=== PATIENT | male | born 1980 | race Hispanic/Latino ===

== ENCOUNTER 2024-06-21 18:58 | Emergency (ER) | payer OTHER ==
--- OUTSIDE RECORDS SUMMARY | 2024-06-21 19:00 | XMS REPORT | Continuity of Care Document ---
Author Name Unknown Address [address] [place] [address] 1 [address] [place] [id number] [facility]connect Address [address] [place] [address] 1 [address] [place] [address] Care Team Providers Care Mortgage Loan Reviewer Name Role Phone Fanta Attending Clinician Madison Jewell Admitting Clinician Madison ascencio Payers Payer Name Policy Type Policy Number Effective Date Expirati on Date Source [employer] - CHOICE (POS II) [id number] 2021 00:00:00 Encounters Start Date/Time End Date/Time Encounter Type Admission Type Attending Clinicians Care Facility Care Department Encounter ID Source 2023-02-13 00:00:00 2023-02-13 00:00:00 Outpatient FOG_AlondraeBradenR Luis AOSM AOSM [id number] [facility] 2023-01-12 00:00:00 2023-01-12 00:00:00 Outpatient MAURICIO_Solomon_R Luis AOSM AOSM [id number] [facility] 2023-01-12 00:00:00 2023-01-12 00:00:00 Outpatient MAURICIO_AlondraeBradenR Luis AOSM AOSM [id number] [facility] 2023-01-09 00:00:00 2023-01-09 00:00:00 Outpatient MAURICIO_AlondraeBradenR Luis AOSM AOSM [id number] [facility] 2023-01-09 00:00:00 2023-01-09 00:00:00 Outpatient MAURICIO_AlondraeBradenR Luis AOSM AOSM [id number] [facility] 2022-12-25 00:00:00 2022-12-25 00:00:00 Outpatient Nakul Smith AOSM AOSM [id number] [facility] 2022-12-23 00:00:00 2022-12-23 00:00:00 Outpatient Nakul Smith AOSM AOSM [id number] [facility] 2022-12-23 00:00:00 2022-12-23 00:00:00 Outpatient Nakul Smith AOSM AOSM [id number] [facility] 2022-12-22 00:00:00 2022-12-22 00:00:00 Outpatient Nakul Smith AOSM AOSM [id number] [facility]
[2024-06-21] MEDS ORDERED: MORPHINE 4 MG/ML SYR ONE (19:25)
[2024-06-21] MEDS ORDERED: ASPIRIN 81 MG CHEWABLE TABLET ONE (19:25)
[2024-06-21] MEDS ORDERED: FENTANYL CITR 100 MCG/2 ML ONE (19:46)
[2024-06-21] MEDS ORDERED: FAMOTIDINE 20 MG/2 ML VIAL IV ONE (19:46)
[2024-06-21] MEDS ORDERED: NITROGLYCERIN 0.4 MG/TAB SL ONE (19:46)
[2024-06-21] MEDS ORDERED: LIDOCAINE 4% PATCH ONE (19:46)
[2024-06-21 20:12] LABS: Absolute Basophils 0.1 K/uL (0-0.5); Absolute Eosinophils 0.2 K/uL (0-0.5); Absolute Lymphocytes (CBC) 2.1 K/uL (0.7-4.9); Absolute Monocytes 0.5 K/uL (0.1-1.3); Basophils % 1.4 % (0-1.3); Eosinophils % 2.4 % (0-4.4); Hematocrit 51.1 % (39.6-49.0); Hemoglobin 17.3 g/dL (13.6-17.9); Lymphocytes % 29.8 % (15.3-44.8); MCH 30.6 pg (27.0-35.0); MCHC 33.8 g/dL (32.0-36.0); MCV 90.4 fL (80-100); MPV 8.1 fL (7.6-11.3); Monocytes % 7.8 % (3.3-12.3); Neutrophils % 58.6 % (41.7-73.7); Nucleated Red Blood Cells % 0.1 % (0-0); Platelets 298 thou/uL (152-406); RBC Red Blood Cell Count 5.65 M/uL (4.33-5.43); Red Cell Distribution Width 14.1 % (12.1-15.2)
[2024-06-21 20:13] LABS: PT Prothrombin Time 10.4 SECONDS (9.4-12.5); Protime INR 0.93
--- NOTE | 2024-06-21 20:15 | RAD REPORT ---
EXAMINATION: ONE VIEW CHEST XR CLINICAL INDICATION: CHEST PAIN TECHNIQUE: Frontal chest projection is submitted. Examination is limited by patient positioning and t echnique. COMPARISON: No prior exam. FINDINGS: The lungs are well inflated and clear. The heart is upper limit of normal in size. No displaced fract ures identified. IMPRESSION: No acute intrathoracic abnormalities.
[2024-06-21 20:30] LABS: Anion Gap 8.6 mEq/L (5.0-15.0); Potassium 3.6 mEq/L (3.5-5.1); Troponin High Sensitivity 6.2 pg/mL (<58.9)
[2024-06-21] MEDS ORDERED: DIPHENHYDRAMINE 50 MG/ML VIAL ONE (21:04)
--- NOTE | 2024-06-21 21:07 | RAD REPORT ---
EXAM: CTA of the chest, abdomen and pelvis HISTORY: Chest pain and back pain chest pain, htn COMPARISON: None TECHNIQUE: Multiple contiguous axial images were obtained a CTA of the chest and abdomen with contras t per aortic dissection protocol. This involves 3D reconstructions, MIPs, volume rendered images and/or shaded surface rendering. One or more of the following dose reduction techniques were used: Au tomated exposure control, adjustment of the mA and/or kV according to patient size, and/or iterative reconstruction. Unless otherwise specified, incidental findings do not require dedicated im aging follow-up. Sagittal and coronal 3-D MIP reformats were performed. FINDINGS: PULMONARY ARTERIES: Normal in caliber without filling defects to suggest pulmonary emboli. ASCENDING THORACIC AORTA: Normal caliber without evidence of dissection or aneurysmal dilatation. DESCENDING THORACIC AORTA: Normal caliber without evidence of dissection or aneurysmal dilatation. ABDOMINAL AORTA: Normal caliber without evidence of dissection or aneurysmal dilatation. CELIAC TRUNK: Patent. SMA: Patent SHELIA: Patent RENAL ARTERIES: Bilateral renal arteries without significant atherosclerotic disease. Accessory left renal artery noted. MEDIASTINUM: No hilar or mediastinal lymphadenopathy. LUNGS: No focal infiltrates or masses. PLEURAL SPACE: No pleural effusion or pneumothorax. LIVER: Prominent fatty liver.. SPLEEN: Unremarkable. PANCREAS: Unremarkable. KIDNEYS: 10 mm low-density lesion with mild enhancement inferior medial right kidney.. ADRENALS: Unremarkable. BOWEL: Unremarkable. RETROPERITONEUM: No lymphadenopathy. BONES: Mild lower lumbar disc bulges. ADDITIONAL FINDINGS: Multistone cholelithiasis. IMPRESSION: No evidence of thoracic or abdominal aortic aneurysm or dissection. Extensive cholelithiasis with diffuse fatty liver. 10 mm low-density lesion with mild rim enhancement inferior medial right kidney. This could be a smal l mass. Recommend MRI renal protocol with contrast for nonemergent follow-up.
--- NOTE | 2024-06-21 22:30 | RAD REPORT ---
EXAM: Right upper quadrant ultrasound. CLINICAL HISTORY: EPIGASTRIC PAIN COMPARISON: None. FINDINGS: Gallbladder: Multiple shadowing gallstones. Bile ducts: No intrahepatic or extrahepatic biliary dilatation. Common bile duct measures 4 mm. Limited imaging of the liver shows no concerning finding. IMPRESSION: Extensive cholelithiasis.
--- NOTE | 2024-06-21 22:46 | EDPHYS ---
Physician Documentation [facility] Name: Lucio Minor Age: 44 yrs Sex: Male : 1980 Arrival Date: 06/21/2024 Time: 18:58 Bed 25 Private MD: ED Physician Skinny Leblanc HPI: 06/21 19:42 This 44 yrs old Male presents to ER via Wheelchair with complaints of Chest ec2 Pain, Breathing Difficulty. 19:42 Patient arrives today for evaluation of chest tightness and shortness of breath. ec2 Patient reports that he has been experiencing some chest tightness throughout the day. States that also occurred last night while he was sleeping and woke him from sleep. Patient reports he had similar types of pain and was diagnosed with GERD. Reports no fevers or chills. Denies any chest trauma. Reports history of hypertension and takes losartan.. Historical: - Allergies: 19:17 No Known Allergies; ap3 - PMHx: 19:17 Hypertensive disorder; ap3 - Immunization history:: Adult Immunizations up to date. - Infectious Disease History:: Denies. - Social history:: Smoking status: Reported history of juuling and/or vaping. ROS: 19:42 Constitutional: as per hpi ec2 Exam: 19:42 Constitutional: GEN: NAD Head: atraumatic Eyes: EOMI Ears: External ears are ec2 normal. CV: regular rate LUNGS: no respiratory distress, no wheezes or rales or rhonchi ABD: non-distended SKIN: no evidence of rashes MSK: no evidence of trauma, reproducible chest wall TTP without deformities or crepitus appreciated. Vital Signs: 19:16 BP 205 / 103; Pulse 70; Resp 19; Pulse Ox 99% on R/A; Weight 95.25 kg; Height 5 ft. 10 ap3 in. ; Pain 10/10; 19:42 BP 172 / 97; ec2 20:00 BP 185 / 98; Pulse 98; Resp 19 S; Pulse Ox 99% on R/A; ha1 21:12 BP 153 / 94; Pulse 76; Resp 20; Pulse Ox 100% ; kmf 21:54 BP 145 / 75; Pulse 72; Resp 18 S; Pulse Ox 99% on R/A; ha1 23:00 BP 123 / 75; Pulse 67; Resp 18 S; Temp 97.6(T); Pulse Ox 98% on R/A; ha1 19:16 Body Mass Index 30.13 (95.25 kg, 177.8 cm) ap3 19:16 Pain Scale: Adult ap3 MDM: 19:16 Medical Screening Exam initiated ec2 19:17 ED course: EKG independently reviewed and interpreted by me, shows normal sinus rhythm, ec2 rate of 66, no acute ST segment elevations, intervals are nonactionable.. 19:42 Data reviewed: vital signs, nurses notes. ED course: Patient arrives today for ec2 evaluation of chest pain. Examination is revealing for uncomfortable individuals otherwise hemodynamically hypertensive. Differential diagnoses considered include processes such as ACS, PE, dissection. Additionally costochondritis, reflux. I did obtain a repeat EKG, independently reviewed and interpreted by me, shows normal sinus rhythm, rate of 76, no acute ST segment elevations, intervals are nonactionable, appears similar to initial. 22:44 Counseling: I had a detailed discussion with the patient and/or guardian regarding the pm1 historical points, exam findings, and any diagnostic results supporting the discharge/admit diagnosis, lab results, radiology results, the need for outpatient follow up, a general surgeon, to return to the emergency department if symptoms worsen or persist or if there are any questions or concerns that arise at home. 22:44 Management of patient was discussed with the following: Dr Leblanc. Reviewed labs and pm1 imaging. Patient can be discharged home with follow up with general surgery. 06/21 19:17 Order name: Basic Metabolic Panel; Complete Time: 22:41 ec2 06/21 19:17 Order name: CBC with Diff; Complete Time: 20:16 ec2 06/21 19:17 Order name: NT PRO-BNP; Complete Time: 22:41 ec2 06/21 19:17 Order name: PT-INR; Complete Time: 20:16 ec2 06/21 19:17 Order name: Troponin HS; Complete Time: 22:41 ec2 06/21 22:24 Order name: Lipase; Complete Time: 22:41 EDMS 06/21 19:17 Order name: XRAY Chest (1 view); Complete Time: 20:58 ec2 06/21 19:35 Order name: CT Aorta for Dissection; Complete Time: 21:30 ec2 12/11 21:50 Order name: US Abdomen Limited; Complete Time: 22:33 pm1 06/21 19:17 Order name: EKG; Complete Time: 19:17 ec2 06/21 19:17 Order name: Cardiac monitoring; Complete Time: 19:57 ec2 06/21 19:17 Order name: EKG - Nurse/Tech; Complete Time: 19:19 ec2 06/21 19:17 Order name: IV Saline Lock; Complete Time: 19:32 ec2 06/21 19:17 Order name: Labs collected and sent; Complete Time: 19:57 ec2 06/21 19:17 Order name: O2 Per Protocol; Complete Time: 19:57 ec2 06/21 19:17 Order name: O2 Sat Monitoring; Complete Time: 19:58 ec2 Administered Medications: 19:22 Drug: morphine IVP or IV 4 mg IVP once over 4 mins Route: IVP; Infused Over: 4 mins; ha1 Site: left antecubital; 20:05 Follow up: Response: No adverse reaction; Pain is unchanged, physician notified ha1 19:23 Drug: Aspirin PO Chewable Tablet 324 mg PO once; 81 mg tablets x 4 Route: PO; ha1 20:00 Follow up: Response: No adverse reaction ha1 19:48 Drug: Nitroglycerin Sublingual 0.4 mg Sublingual once; every five minute if needed x3 ha1 Route: Sublingual; 20:20 Follow up: Response: No adverse reaction ha1 19:48 Drug: Famotidine IVP 20 mg IVP once; dilute with 10 mL 0.9% NaCl; give over 2 minutes ha1 Route: IVP; Site: left antecubital; 20:20 Follow up: Response: No adverse reaction; Marked relief of symptoms ha1 19:50 Drug: fentaNYL (PF) IVP 100 mcg IVP once Route: IVP; Site: left antecubital; ha1 20:20 Follow up: Response: No adverse reaction; Marked relief of symptoms; Pain is decreased; ha1 RASS: Alert and Calm (0) 19:58 Drug: Lidoderm Topical Patch 5 % (700 mg/patch) 1 patches Topical once; leave on for 12 ha1 hours; cover most painful area; may cut into smaller pieces Route: Topical; Site: affected area; 20:20 Follow up: Response: No adverse reaction ha1 21:06 Drug: diphenhydrAMINE IVP 25 mg IVP once Route: IVP; Site: left antecubital; ha1 21:20 Follow up: Response: No adverse reaction; Marked relief of symptoms ha1 Disposition: 06/22 22:13 Co-signature as Attending Physician, Skinny Leblanc MD I agree with the assessment sp4 and plan of care. I reviewed the patient's care provided by the Advanced Practice Provider and agree with the diagnosis and treatment plan. Disposition Summary: 06/21/24 22:46 Discharge Ordered Notes: Location: Home pm1 Problem: new pm1 Symptoms: have improved pm1 Condition: Stable pm1 Diagnosis - Chest pain, unspecified pm1 - Other cholelithiasis without obstruction pm1 Followup: pm1 - With: Emergency Department - When: As needed - Reason: Worsening of condition Followup: pm1 - With: Private Physician - When: 2 - 3 days - Reason: Recheck today's complaints, Continuance of care, Re-evaluation by your physician Followup: pm1 - With: Shane Minor MD - When: 2 - 3 days - Reason: Recheck today's complaints, Continuance of care, Re-evaluation by your physician Discharge Instructions: - Discharge Summary Sheet pm1 - Nonspecific Chest Pain, Adult pm1 - Cholelithiasis pm1 Forms: - Medication Reconciliation Form pm1 - Antibiotic Education pm1 - Prescription Opioid Use pm1 - Patient Portal Instructions pm1 - Leadership Thank You Letter pm1 Prescriptions: - ondansetron 4 mg Oral Tablet,disintegrating - take 1 tablet ORAL route every 8 hours As needed; 12 tablet; Refills: 0, pm1 Product Selection Permitted - dicyclomine 20 mg Oral tablet - take 1 tablet ORAL route 4 times per day As needed; 20 tablet; Refills: 0, pm1 Product Selection Permitted Signatures: Dispatcher [employer] EDMS Mahin Dean NP LAN ENGINEER pm1 Cris Rico RN RN ap3 Carmencita Koehler RN RN ha1 Skinny Leblanc MD MD sp4 Bernabe England MD MD ec2 Corrections: (The following items were deleted from the chart) 06/21 22:24 21:51 LIPASE+C.LAB.BRZ ordered. EDNC EDMS
--- NOTE | 2024-06-21 22:46 | ER ---
Nurse's Notes [facility] Name: Lucio Minor Age: 44 yrs Sex: Male : 1980 Arrival Date: 06/21/2024 Time: 18:58 Bed 25 Private MD: Diagnosis: Chest pain, unspecified;Other cholelithiasis without obstruction Presentation: 06/21 19:16 Chief complaint: Patient states: he started having chest pain at approx 0200 this ap3 morning. patient currently rates his chest pain a 10/10 on the pain scale. patient states the pain does not radiate at this time. Coronavirus screen: At this time, the client does not indicate any symptoms associated with coronavirus-19. Ebola Screen: No symptoms or risks identified at this time. Initial Sepsis Screen: Does the patient meet any 2 criteria? No. Patient's initial sepsis screen is negative. Does the patient have a suspected source of infection? No. Patient's initial sepsis screen is negative. Risk Assessment: Do you want to hurt yourself or someone else? Patient reports no desire to harm self or others. Onset of symptoms was June 21, 2024. 19:16 Method Of Arrival: Wheelchair ap3 19:16 Acuity: LINDSEY 2 ap3 Triage Assessment: 19:18 General: Appears uncomfortable, Behavior is restless. Pain: Complains of pain in chest ap3 Pain currently is 10 out of 10 on a pain scale. Neuro: Level of Consciousness is awake, alert, obeys commands, Oriented to person, place, time, situation, Appropriate for age. Cardiovascular: Reports chest pain. Respiratory: Airway is patent Respiratory effort is even, unlabored, Respiratory pattern is regular, symmetrical. Historical: - Allergies: 19:17 No Known Allergies; ap3 - PMHx: 19:17 Hypertensive disorder; ap3 - Immunization history:: Adult Immunizations up to date. - Infectious Disease History:: Denies. - Social history:: Smoking status: Reported history of juuling and/or vaping. Screenin:16 [facility] ED Fall Risk Assessment (Adult) History of falling in the last 3 months, ha1 including since admission No falls in past 3 months (0 pts) Confusion or Disorientation No (0 pts) Intoxicated or Sedated No (0 pts) Impaired Gait No (0 pts) Mobility Assist Device Used No (0 pt) Altered Elimination Score/Fall Risk Level 0 - 2 = Low Risk Oriented to surroundings, Maintained a safe environment, Educated pt \T\ family on fall prevention, incl call for assistance when getting out of bed, Hourly rounding (assess needs \T\ fall precautionary measures) done. 19:19 Abuse screen: Denies threats or abuse. Nutritional screening: No deficits noted. ap3 Tuberculosis screening: No symptoms or risk factors identified. Assessment: 19:16 General: Appears uncomfortable, Behavior is agitated, anxious, restless. Pain: ha1 Complains of pain in chest Pain radiates to back Pain currently is 10 out of 10 on a pain scale. Quality of pain is described as throbbing, Pain began suddenly, 1 hour ago. Neuro: Level of Consciousness is awake, alert, obeys commands, Oriented to person, place, time, situation. Cardiovascular: Capillary refill < 3 seconds Patient's skin is warm and dry. Cardiovascular: Reports chest pain, Rhythm is sinus rhythm. Respiratory: Airway is patent Respiratory effort is even, unlabored, Respiratory pattern is regular, symmetrical. GI: Abdomen is round non-distended, Reports nausea. 20:00 Reassessment: Patient and/or family updated on plan of care and expected duration. Pain ha1 level reassessed. Patient is alert, oriented x 3, equal unlabored respirations, skin warm/dry/pink. pain 7/10 Patient states symptoms have improved. 21:00 Reassessment: Patient and/or family updated on plan of care and expected duration. Pain ha1 level reassessed. Patient is alert, oriented x 3, equal unlabored respirations, skin warm/dry/pink. 21:54 Reassessment: Patient and/or family updated on plan of care and expected duration. Pain ha1 level reassessed. Patient is alert, oriented x 3, equal unlabored respirations, skin warm/dry/pink. Patient states feeling better. Patient states symptoms have improved. 23:00 Reassessment: Patient and/or family updated on plan of care and expected duration. Pain ha1 level reassessed. Patient is alert, oriented x 3, equal unlabored respirations, skin warm/dry/pink. Patient denies pain at this time. Patient states feeling better. Patient states symptoms have improved. Vital Signs: 19:16 BP 205 / 103; Pulse 70; Resp 19; Pulse Ox 99% on R/A; Weight 95.25 kg; Height 5 ft. 10 ap3 in. ; Pain 10/10; 19:42 BP 172 / 97; ec2 20:00 BP 185 / 98; Pulse 98; Resp 19 S; Pulse Ox 99% on R/A; ha1 21:12 BP 153 / 94; Pulse 76; Resp 20; Pulse Ox 100% ; kmf 21:54 BP 145 / 75; Pulse 72; Resp 18 S; Pulse Ox 99% on R/A; ha1 23:00 BP 123 / 75; Pulse 67; Resp 18 S; Temp 97.6(T); Pulse Ox 98% on R/A; ha1 19:16 Body Mass Index 30.13 (95.25 kg, 177.8 cm) ap3 19:16 Pain Scale: Adult ap3 ED Course: 19:01 Patient arrived in ED. ra3 19:08 EKG done, by ED staff, reviewed by Bernabe England MD. ap3 19:15 No provider procedures requiring assistance completed. Inserted saline lock: 20 gauge ha1 in right hand, using aseptic technique. Blood collected. Flushed with 10 mL NS. 19:15 Arm band placed on right wrist. ha1 19:15 Client placed on continuous cardiac and pulse oximetry monitoring. NIBP monitoring ha1 applied. senior solutions architect on. 19:15 Patient has correct armband on for positive identification. Placed in gown. Bed in low ha1 position. Call light in reach. Side rails up X 1. Adult w/ patient. 19:16 Bernabe England MD is Attending Physician. ec2 19:17 Triage completed. ap3 19:19 Patient maintains SpO2 saturation greater than 95% on room air. ap3 19:28 Inserted saline lock: 18 gauge in left antecubital area, using aseptic technique. ha1 Flushed with 10 mL NS. 19:42 Carmencita Koehler, LIZET is Primary Nurse. ha1 20:01 XRAY Chest (1 view) In Process Unspecified. EDMS 20:56 CT Aorta for Dissection In Process Unspecified. EDMS 20:57 Mahin Dean NP is PHCP. pm1 22:26 US Abdomen Limited In Process Unspecified. EDMS 22:42 Attending Physician role handed off by Bernabe England MD sp4 22:42 Skinny Leblanc MD is Attending Physician. sp4 22:45 Shane Minor MD is Referral Physician. pm1 23:25 IV discontinued, intact, bleeding controlled, No redness/swelling at site. Pressure ha1 dressing applied. 23:25 Provided Education on: follow ups and medication administration . ha1 Administered Medications: 19:22 Drug: morphine IVP or IV 4 mg IVP once over 4 mins Route: IVP; Infused Over: 4 mins; ha1 Site: left antecubital; 20:05 Follow up: Response: No adverse reaction; Pain is unchanged, physician notified ha1 19:23 Drug: Aspirin PO Chewable Tablet 324 mg PO once; 81 mg tablets x 4 Route: PO; ha1 20:00 Follow up: Response: No adverse reaction ha1 19:48 Drug: Nitroglycerin Sublingual 0.4 mg Sublingual once; every five minute if needed x3 ha1 Route: Sublingual; 20:20 Follow up: Response: No adverse reaction ha1 19:48 Drug: Famotidine IVP 20 mg IVP once; dilute with 10 mL 0.9% NaCl; give over 2 minutes ha1 Route: IVP; Site: left antecubital; 20:20 Follow up: Response: No adverse reaction; Marked relief of symptoms ha1 19:50 Drug: fentaNYL (PF) IVP 100 mcg IVP once Route: IVP; Site: left antecubital; ha1 20:20 Follow up: Response: No adverse reaction; Marked relief of symptoms; Pain is decreased; ha1 RASS: Alert and Calm (0) 19:58 Drug: Lidoderm Topical Patch 5 % (700 mg/patch) 1 patches Topical once; leave on for 12 ha1 hours; cover most painful area; may cut into smaller pieces Route: Topical; Site: affected area; 20:20 Follow up: Response: No adverse reaction ha1 21:06 Drug: diphenhydrAMINE IVP 25 mg IVP once Route: IVP; Site: left antecubital; ha1 21:20 Follow up: Response: No adverse reaction; Marked relief of symptoms ha1 Medication: 23:25 VIS not applicable for this client. ha1 Outcome: 22:46 Discharge ordered by . pm1 23:25 Patient left the ED. ha1 23:25 Condition: stable ha1 23:25 Discharged to home ambulatory, with family, ha1 23:25 Discharge instructions given to patient, family, Instructed on discharge instructions, follow up and referral plans. medication usage, Demonstrated understanding of instructions, follow-up care, medications, Prescriptions given X 2, Signatures: Dispatcher [employer] EDMahin Adames, STORY EDITOR STORY EDITOR pm1 Cris Rico RN RN ap3 Carmencita Koehler RN RN ha1 Skinny Leblanc MD MD sp4 Bernabe England MD MD ec2 Skyla Armando formerly [facility] Yisel Blanchard ra3 Corrections: (The following items were deleted from the chart) 23:47 23:44 Patient left the ED. ha1 ha1
[2024-06-21 23:54] VITALS: BP 145/75; O2SAT 99
--- NOTE | 2024-06-23 15:49 | EKG ---
Test Date: 2024-06-21 Test Time: 19:36:36 Office Machine Installer: ALP MEASUREMENT RESULTS: Intervals: Rate: 76 RI: 140 QRSD: 94 QT: 420 QTc: 472 [place]: P: 61 RI: 140 QRS: 72 T: 25 INTERPRETIVE STATEMENTS: Normal sinus rhythm Normal ECG Compared to ECG 06/21/2024 19:08:17 No significant changes Electronically Signed On 06-23-24 15:47:21 TELETYPESETTER OPERATOR by Kojo Shaver
--- NOTE | 2024-06-23 15:49 | EKG ---
Test Date: 2024-06-21 Test Time: 19:08:17 Napper Fixer: ALP MEASUREMENT RESULTS: Intervals: Rate: 66 AL: 140 QRSD: 94 QT: 390 QTc: 408 [place]: P: 53 AL: 140 QRS: 76 T: 45 INTERPRETIVE STATEMENTS: Normal sinus rhythm Normal ECG Compared to ECG 02/04/2015 02:14:01 No significant changes Electronically Signed On 06-23-24 15:47:23 MOVIE CRITIC by Kojo Shaver
== END 2024-06-21 23:44 | disposition home or self-care (01) ==
LOC: ER 18:58
DX: K80.80 Other cholelithiasis without obstruction (principal); I10 Essential (primary) hypertension
CPT/HCPCS: 93005 ×2; 85025; 80048; 36415; 85610; 84484; 83690; 83880; 71275; 74175; 71045; 76705; 96375; 96374; 99285; Q9967; J2003; J1200; J3010

== ENCOUNTER 2024-06-26 09:07 | Day surgery (SDC) | payer OTHER ==
[2024-06-26 09:48] LABS: Absolute Eosinophils 0.2 K/uL (0-0.5); Absolute Lymphocytes (CBC) 1.4 K/uL (0.7-4.9); Absolute Monocytes 0.5 K/uL (0.1-1.3); Absolute Neutrophil 3.3 K/uL (1.8-8.0); Basophils % 0.9 % (0-1.3); Hematocrit 47.5 % (39.6-49.0); Hemoglobin 15.7 g/dL (13.6-17.9); Lymphocytes % 25.6 % (15.3-44.8); MCH 30.6 pg (27.0-35.0); MCHC 33.1 g/dL (32.0-36.0); MCV 92.3 fL (80-100); MPV 7.8 fL (7.6-11.3); Monocytes % 9.2 % (3.3-12.3); Neutrophils % 61.3 % (41.7-73.7); Platelets 288 thou/uL (152-406); RBC Red Blood Cell Count 5.14 M/uL (4.33-5.43); Red Cell Distribution Width 13.7 % (12.1-15.2)
[2024-06-26 10:03] LABS: Albumin 3.2 g/dL (3.4-5.0); Albumin/Globulin Ratio 0.8 (1.1-1.8); Anion Gap 6.5 mEq/L (5.0-15.0); Bilirubin Direct 0.2 mg/dL (0-0.2); Bilirubin Indirect, Calculated 0.4 mg/dL (0.2-0.8); Bilirubin Total 0.6 mg/dL (0.2-1.0); Globulin 3.8 g/dL (2.3-3.5); Potassium 4.5 mEq/L (3.5-5.1)
[2024-06-26] MEDS: Ringers Lactate 1,000 ML IV ONE (10:20)
--- NOTE | 2024-06-26 10:25 | RAD REPORT ---
EXAM: Chest Pa And Lat (2 Views) HISTORY: PREOP COMPARISON: 06/21/2024 FINDINGS: LUNGS/PLEURA: The lungs are clear. No pleural effusions or pneumothorax. No pulmonary edema. MEDIASTINUM: The mediastinal silhouette is within normal limits. CARDIAC: The cardiac silhouette is within normal limits. UPPER ABDOMEN: No significant abnormality. BONES: No acute fracture. LINES/TUBES/OTHER: N/A IMPRESSION: No evidence of acute cardiopulmonary disease.
[2024-06-26] MEDS ORDERED: ROCURONIUM 50 MG/5 ML VIAL IV ONE (10:49)
[2024-06-26] MEDS ORDERED: FENTANYL CITR 100 MCG/2 ML ONE (10:49)
[2024-06-26] MEDS ORDERED: propofoL 200 MG/20 ML VIAL IV ONE (10:49)
[2024-06-26] MEDS ORDERED: MIDAZOLAM HCL 2 MG/2 ML INJ ONE (10:49)
[2024-06-26] MEDS ORDERED: LIDOCAINE 2% MPF 5 ML VIAL ONE (10:49)
[2024-06-26] MEDS ORDERED: ONDANSETRON 4 MG/2 ML VIAL ONE (10:49)
[2024-06-26] MEDS: CEFOXITIN SODIUM 1 GM/VIAL ONE (11:34)
[2024-06-26] MEDS ORDERED: dexAMETHasone 10 MG/ML VIAL ONE (11:35)
[2024-06-26] MEDS ORDERED: NEOSTIGMINE 1 MG/ML -10 ML VIAL ONE (12:12)
[2024-06-26] MEDS ORDERED: GLYCOPYRROLATE 0.2 MG/ML SYR ONE ×2 (12:12→12:14)
[2024-06-26] MEDS ORDERED: KETOROLAC 30 MG/ML INJ ONE (12:13)
--- NOTE | 2024-06-26 12:31 | P.BOP ---
Preoperative diagnosis: Acute cholecystitis, symptomatic cholelithiasis Postoperative diagnosis: same Primary procedure: Laparoscopic cholecystectomy Estimated blood loss: <10cc Specimen: gb Findings: as above Anesthesia: General Complications: None Transferred to: Recovery Room Condition: Good
[2024-06-26] MEDS: HYDROMORPHONE HCL 1 MG/ML INJ ONE (12:50)
[2024-06-26 14:17] VITALS: BP 134/93; TEMP 97; O2SAT 100
--- NOTE | 2024-06-26 23:49 | DS ---
Date of Discharge: 06/26/2024 Diagnoses: Acute cholecystitis, symptomatic cholelithiasis. Procedure: Laparoscopic cholecystectomy. Condition: Stable. Disposition: Home. Activity: As tolerated. No heavy lifting. Discharge Instructions: Follow up in my office in 1 week, call for appointment at [phone]. Keep ar ea dry for 48 hours, then may shower. Keep Steri-Strip intact. For medications, see orders. CARMELA/TERRENCE Voice ID: [id number] Report ID: [id number]
--- NOTE | 2024-06-26 23:49 | OP ---
Date of Procedure: 06/26/2024 Surgeon: Shane Minor MD Preoperative Diagnoses: Acute cholecystitis, symptomatic cholelithiasis. Postoperative Diagnoses: Acute cholecystitis, symptomatic cholelithiasis. Procedure: Laparoscopic cholecystectomy. Estimated Blood Loss: Less than 10 cc. Specimen: Gallbladder. Anesthesia: General plus local. Complications: None. Indications: This is a case of a 44-year-old patient who comes to us with above diagnoses. Fully ex plained the benefits, alternatives, and risks of laparoscopic, possible open cholecystectomy, which i nclude, but not limited to, infection, bleeding, damage to adjacent structures, anesthesia complicati on, choledocholithiasis, bile leak, pancreatitis, MD, and even . He also understands this may n ot relieve symptoms. He might need more than one surgical intervention. He understood, signed a con sent. Procedure In Detail: The patient was brought to the operating room, placed in supine position. Anes thesia was done without complication. Abdominal area was prepped and draped in usual sterile fashion . Marcaine 0.5% was injected for local anesthetic, followed by sharp incision of the skin in the inf raumbilical region. Incision was carried down to fascia, which was opened under direct vision. Danna toneum was encountered, opened under direct vision. Vicryl #1 placed inside the fascia. Clari troc ar was carefully introduced. No bleeding was obtained. I placed 3 more trocars, 5 mm each one of th em, one in epigastric area and two in the right upper quadrant using the same technique, which consis mitzi of local anesthetic, sharp incision of the skin, introduction of the trocars under direct vision. This allowed me to put a grasper in the fundus of the gallbladder and another grasper in the infund ibulum, retracting the gallbladder in the inferolateral fashion exposing the triangle of Calot, obtai robbie critical view. The cystic duct and cystic artery were clearly isolated and freed circumferentia lly, and a connection between those and the gallbladder were clearly identified. I proceeded to liga te those by using at least 3 clips proximal and 1 clip distal, ligation in the middle. Same was done with the cystic artery. No bile leak. No bleeding. The gallbladder was removed from liver using B ovie cauterizer and removed from abdominal cavity using Endo Catch through the umbilical incision. I have to mention during the gallbladder surgery, we had multiple omental adhesions of the omentum to the gallbladder that were removed with the help of LigaSure. Once we got the gallbladder off the abd ominal cavity through the umbilical incision, we proceeded to inspect the area once again after obtai robbie pneumoperitoneum. No bile leak. No bleeding. Clips were intact. Gallbladder fossa was intact . At that moment, I proceeded to remove the trocars under direct vision. Deflated the pneumoperiton eum. Closed the fascia with #1 Vicryl; irrigated the subcutaneous tissue, closed that with 3-0 chrom ic; and the skin in a subcuticular fashion with 3-0 chromic and Steri-Strip on top. Sponge count and instrument counts correct. The patient tolerated the procedure well. The patient was sent to recover y in stable condition. CARMELA/TERRENCE Voice ID: [id number] Report ID: [id number]
--- NOTE | 2024-06-27 11:58 | EKG ---
Test Date: 2024-06-26 Test Time: 10:50:24 [employer]: REZA MEASUREMENT RESULTS: Intervals: Rate: 62 NM: 140 QRSD: 88 QT: 404 QTc: 410 [place]: P: 68 NM: 140 QRS: 49 T: 72 INTERPRETIVE STATEMENTS: Normal sinus rhythm Normal ECG Compared to ECG 06/21/2024 19:36:36 No significant changes Electronically Signed On 06-27-24 11:56:44 [employer]ITY PROFESSIONAL by Kojo Shaver
== END 2024-06-26 14:10 | disposition home or self-care (01) ==
LOC: OR 09:07
PROVIDERS: ATTEND Surgery
PROC: 0FT44ZZ Resection of Gallbladder, Percutaneous Endoscopic Approach (ICD-10-PCS; principal; 2024-06-26 11:24)
DX: K80.12 Calculus of gallbladder with acute and chronic cholecystitis without obstruction (principal)
CPT/HCPCS: 85025; 80048; 36415; 80076; 88304; 83690; 71046; 47562; J2704; J2710; J2003; J2250; J3010; J1100; J1171; J0694; J2405; J7120; 93005